=== PATIENT | male | born 1990 | race Hispanic/Latino ===

== ENCOUNTER 2019-02-05 02:24 | Emergency (ER) | payer SELFPAY ==
[2019-02-05 03:30] LABS: APPEARANCE,URINE Clear (CLEAR); BILIRUBIN,URINE Negative (NEGATIVE); COLOR,URINE Yellow (YELLOW); GLUCOSE, URINE (UA) Negative (NEGATIVE); KETONES,URINE Negative (NEGATIVE); LEUKOCYTE ESTERASE ,URINE Negative (NEGATIVE); NITRATE,URINE Negative (NEGATIVE); OCCULT BLOOD,URINE Negative (NEGATIVE); PROTEIN,URINE Negative (NEGATIVE); UROBILINOGEN,URINE 0.2 mg/dL (0.2-1.0)
[2019-02-05] MEDS ORDERED: METRONIDAZOLE 500 MG TABLET ONE (03:42)
[2019-02-05] MEDS ORDERED: CEFTRIAXONE SODIUM 1 GM ONE (03:43)
[2019-02-05] MEDS ORDERED: AZITHROMYCIN 250 MG TABLET PO ONE (03:43)
== END 2019-02-05 04:10 | disposition left against medical advice (07) ==
LOC: EDH 02:24
DX: N34.2 Other urethritis (principal); Z90.49 Acquired absence of other specified parts of digestive tract; Z72.0 Tobacco use
CPT/HCPCS: 81003; 96372; 99283; J0696

== ENCOUNTER 2020-03-10 23:44 | Emergency (ER) | payer SELFPAY ==
[2020-03-11] MEDS ORDERED: SODIUM CHLORIDE 0.9% 1000ML 1,000 ML IV ONE (00:24)
[2020-03-11] MEDS ORDERED: KETOROLAC TROMETHAMINE 30MG/ML ONE (00:24)
[2020-03-11] MEDS ORDERED: CEFTRIAXONE SODIUM 1 GM ONE (02:19)
[2020-03-11] MEDS ORDERED: AZITHROMYCIN 250 MG TABLET PO ONE (02:20)
== END 2020-03-11 02:42 | disposition home or self-care (01) ==
LOC: EDH 23:44
DX: N45.1 Epididymitis (principal); N34.1 Nonspecific urethritis; Z90.49 Acquired absence of other specified parts of digestive tract
CPT/HCPCS: 36415; 76870; 80053; 81001; 83605; 85025; 85610; 85730; 87088; 87486; 87797; 96374; 96375; 99284; J0696; J1885; J7030